=== PATIENT | male | born 1975 | race American Indian/Alaskan Native ===

== ENCOUNTER 2020-09-25 04:56 | Emergency (ER) | payer SELFPAY ==
[2020-09-25] MEDS ORDERED: ONDANSETRON 4 MG/2 ML INJ IV ONE (05:56)
[2020-09-25] MEDS ORDERED: SODIUM CHLORIDE 0.9% 1000 ML 1,000 ML IV ONE (05:56)
[2020-09-25] MEDS ORDERED: HYOSCYAMINE SUBL 0.125 MG TAB SL ONE (05:56)
[2020-09-25 06:09] LABS: Hematocrit 53.4 % (35.5-45.6); Hemoglobin 18.1 gm/dl (11.8-15.2); Mean Corpuscular HGB Conc 34 % (32-34); Mean Corpuscular Volume 94 fl (84-94); Red Blood Count 5.65 M/mm3 (3.65-5.03); Red Cell Distribution Width 14.6 % (13.2-15.2)
[2020-09-25 06:13] LABS: Platelet Count 184 K/mm3 (140-440)
--- NOTE | 2020-09-25 06:23 | Emergency Department Report ---
ED General Adult HPI - General Chief complaint: GI Bleed Stated complaint: N/V, Time Seen by Provider: 09/25/20 06:14 Source: patient Mode of arrival: Wheelchair Limitations: No Limitations - History of Present Illness Initial comments: Patient is a 44-year-old male presents emergency department for evaluation of intermittent burning epigastric pain associated with nausea and many episodes of vomiting beginning last night. Patient states after many episodes of nonbloody vomiting, a bystander noticed possible blood in his vomitus the last time. Ami ent denies diarrhea, denies fever, denies chest pain, no shortness of breath. - Related Data Previous Rx's Medication Instructions Recorded Last Taken Type Famotidine [Acid Controller] 20 mg PO BID #60 tablet 09/25/20 Unknown Rx Allergies Allergy/AdvReac Type Severity Reaction Status Date / Time No Known Allergies Allergy Unverified 09/25/20 05:31 ED Review of Systems ROS: Stated complaint: N/V, Other details as noted in HPI Comment: All other systems reviewed and negative ED Past Medical Hx - Past Medical History Previous Medical History?: No - Medications Home Medications: Home Medications Medication Instructions Recorded Confirmed Last Taken Type Famotidine [Acid Controller] 20 mg PO BID #60 tablet 09/25/20 Unknown Rx ED Physical Exam - General Limitations: No Limitations General appearance: alert, in no apparent distress - Head Head exam: Present: atraumatic, normocephalic - Eye Eye exam: Present: normal appearance - ENT ENT exam: Present: mucous membranes moist - Neck Neck exam: Present: normal inspection - Respiratory Respiratory exam: Present: normal lung sounds bilaterally. Absent: respiratory distress - Cardiovascular Cardiovascular Exam: Present: regular rate, normal rhythm - GI/Abdominal GI/Abdominal exam: Present: soft, tenderness (Mild epigastric), normal bowel sounds - Rectal Rectal exam: Present: deferred - Extremities Exam Extremities exam: Present: normal inspection - Back Exam Back exam: Present: normal inspection - Neurological Exam Neurological exam: Present: alert, oriented X3 - Psychiatric Psychiatric exam: Present: normal affect, normal mood - Skin Skin exam: Present: warm, dry, intact, normal color. Absent: rash ED Course Vital Signs 09/25/20 09/25/20 09/25/20 05:32 06:13 06:15 Temperature 97.7 F Pulse Rate 95 H 96 H 93 H Respiratory 18 18 11 L Rate Blood Pressure 135/105 O2 Sat by Pulse 98 94 95 Oximetry 09/25/20 09/25/20 09/25/20 06:31 06:57 07:00 Temperature Pulse Rate 91 H 93 H 92 H Respiratory 12 22 12 Rate Blood Pressure 157/83 156/99 156/99 O2 Sat by Pulse 97 99 98 Oximetry 09/25/20 09/25/20 09/25/20 07:15 07:31 07:45 Temperature Pulse Rate 93 H 88 97 H Respiratory 14 10 L 13 Rate Blood Pressure 163/96 155/83 155/83 O2 Sat by Pulse 95 96 97 Oximetry 09/25/20 09/25/20 09/25/20 08:01 08:14 08:15 Temperature Pulse Rate 99 H 93 H Respiratory 13 16 14 Rate Blood Pressure 155/83 155/83 O2 Sat by Pulse 98 98 Oximetry 09/25/20 09/25/20 09/25/20 08:31 08:45 09:01 Temperature Pulse Rate 92 H 94 H 92 H Respiratory 15 16 15 Rate Blood Pressure 155/83 155/83 155/83 O2 Sat by Pulse 94 94 94 Oximetry 09/25/20 09/25/20 09:19 09:31 Temperature Pulse Rate 94 H 89 Respiratory 12 12 Rate Blood Pressure 155/83 155/83 O2 Sat by Pulse 98 99 Oximetry - Reevaluation(s) Reevaluation #1: 09/25/20 07:28 Patient complaining of "stomach pain." Asked to localize pain, points to his epigastrium, states he has burning pain, specifies repeatedly the pain is in his stomach. Patient given Toradol IV, Maalox and Pepcid p.o. 09/25/20 10:41 Reevaluation #2: 09/25/20 10:42 On reevaluation, patient in no acute distress, abdomen is soft nontender. Patient states his discomfort is resolved. Patient is tolerating p.o. in the emergency department. Patient is advised to follow-up with primary care doctor in 1 to 2 days for reevaluation and referral to GI, explaining that endoscopy may be necessary. Web form for [facility] filled out on behalf of patient by EDMD to facilitate follow-up appointment. Patient advised to minimize and/or discontinue drinking alcohol. ED Medical Decision Making - Lab Data Result diagrams: 09/25/20 05:49 09/25/20 Unknown Labs 09/25/20 09/25/20 09/25/20 05:49 Unknown Unknown WBC 15.4 H RBC 5.65 H Hgb 18.1 H Hct 53.4 H MCV 94 MCH 32 MCHC 34 RDW 14.6 Plt Count 184 Add Manual Diff Complete Total Counted 100 Seg Neutrophils % Home Health Nurse Licensed Practical Seg Neuts % (Manual) 88.0 H Lymphocytes % (Manual) 9.0 L Monocytes % (Manual) 3.0 Nucleated RBC % Not Reportable Seg Neutrophils # Man 13.6 H Band Neutrophils # 0.0 Lymphocytes # (Manual) 1.4 Abs React Lymphs (Man) 0.0 Monocytes # (Manual) 0.5 Eosinophils # (Manual) 0.0 Basophils # (Manual) 0.0 Metamyelocytes # 0.0 Myelocytes # 0.0 Promyelocytes # 0.0 Blast Cells # 0.0 WBC Morphology Not Reportable Hypersegmented Neuts Not Reportable Hyposegmented Neuts Not Reportable Hypogranular Neuts Not Reportable Smudge Cells Not Reportable Toxic Granulation Not Reportable Toxic Vacuolation Not Reportable Dohle Bodies Not Reportable Pelger-Huet Anomaly Not Reportable Joby Rods Not Reportable Platelet Estimate Consistent w auto Clumped Platelets Rare Plt Clumps, EDTA Not Reportable Large Platelets Rare Giant Platelets Not Reportable Platelet Satelliting Not Reportable Plt Morphology Comment Not Reportable RBC Morphology Normal Dimorphic RBCs Not Reportable Polychromasia Not Reportable Hypochromasia Not Reportable Poikilocytosis Not Reportable Anisocytosis Not Reportable Microcytosis Not Reportable Macrocytosis Not Reportable Spherocytes Not Reportable Pappenheimer Bodies Not Reportable Sickle Cells Not Reportable Target Cells Not Reportable Tear Drop Cells Not Reportable Ovalocytes Not Reportable Helmet Cells Not Reportable [place] Bodies Not Reportable [place] Rings Not Reportable [place] Cells Not Reportable Bite Cells Not Reportable Crenated Cell Not Reportable Elliptocytes Not Reportable Acanthocytes (Spur) Not Reportable Rouleaux Not Reportable Hemoglobin C Crystals Not Reportable Schistocytes Not Reportable Malaria parasites Not Reportable Zeferino Bodies Not Reportable Hem Pathologist Commnt No Sodium 142 Potassium 3.5 L Chloride 107.2 H Carbon Dioxide 10 L Anion Gap 28 BUN 13 Creatinine 0.9 Estimated GFR > 60 BUN/Creatinine Ratio 14 Glucose 57 L Calcium 7.4 L Total Bilirubin 0.20 Direct Bilirubin < 0.2 Indirect Bilirubin 0.0 AST 29 ALT 23 Alkaline Phosphatase 70 Total Protein 6.8 Albumin 4.0 Albumin/Globulin Ratio 1.4 Lipase 18 Vital Signs 09/25/20 09/25/20 09/25/20 05:32 06:13 06:15 Temperature 97.7 F Pulse Rate 95 H 96 H 93 H Respiratory 18 18 11 L Rate Blood Pressure 135/105 O2 Sat by Pulse 98 94 95 Oximetry 09/25/20 09/25/20 09/25/20 06:31 06:57 07:00 Temperature Pulse Rate 91 H 93 H 92 H Respiratory 12 22 12 Rate Blood Pressure 157/83 156/99 156/99 O2 Sat by Pulse 97 99 98 Oximetry 09/25/20 09/25/20 09/25/20 07:15 07:31 07:45 Temperature Pulse Rate 93 H 88 97 H Respiratory 14 10 L 13 Rate Blood Pressure 163/96 155/83 155/83 O2 Sat by Pulse 95 96 97 Oximetry 09/25/20 09/25/20 09/25/20 08:01 08:14 08:15 Temperature Pulse Rate 99 H 93 H Respiratory 13 16 14 Rate Blood Pressure 155/83 155/83 O2 Sat by Pulse 98 98 Oximetry 09/25/20 09/25/20 09/25/20 08:31 08:45 09:01 Temperature Pulse Rate 92 H 94 H 92 H Respiratory 15 16 15 Rate Blood Pressure 155/83 155/83 155/83 O2 Sat by Pulse 94 94 94 Oximetry 09/25/20 09/25/20 09:19 09:31 Temperature Pulse Rate 94 H 89 Respiratory 12 12 Rate Blood Pressure 155/83 155/83 O2 Sat by Pulse 98 99 Oximetry - Radiology Data Radiology results: report reviewed CT abdomen pelvis negative per radiology Critical care attestation.: If time is entered above; I have spent that time in minutes in the direct care of this critically ill patient, excluding procedure time. ED Disposition Clinical Impression: Abdominal pain, Nausea & vomiting Disposition: DC-01 TO HOME OR SELFCARE Is pt being admited?: No Condition: Stable Instructions: Abdominal Pain, Adult, Nausea and Vomiting, Adult Additional Instructions: Follow-up with PMD in 1 to 2 days for reevaluation. Return to the emergency department for worsening symptoms. Prescriptions: Famotidine [Acid Controller] 20 mg PO BID #60 tablet Referrals: PRIMARY CARE,MD [Primary Care Provider] - 3-5 Days Forms: Accompanied Note
[2020-09-25 06:42] LABS: RBC Morphology Normal; Total Cells Counted 100
[2020-09-25 06:43] LABS: Large Platelets Rare; Platelet Clumps Rare; Platelet Estimate Consistent w Auto
[2020-09-25 07:11] LABS: Alanine Aminotransferase 23 units/L (7-56)
[2020-09-25] MEDS ORDERED: FAMOTIDINE 20 MG TAB PO ONE (07:27)
[2020-09-25] MEDS ORDERED: ALUM-MAG HYDROXIDE-SIMETHICONE 200-200-20MG/5ML ORAL LIQD 30 ML PO ONE (07:27)
[2020-09-25] MEDS ORDERED: KETOROLAC 30 MG/1 ML INJ IV ONE (07:27)
[2020-09-25 07:42] LABS: Bilirubin,Direct < 0.2 mg/dL (0-0.2)
[2020-09-25 08:45] VITALS: BP 155/83
[2020-09-25 08:51] LABS: BUN/Creatinine Ratio 14; Blood Urea Nitrogen 13 mg/dL (9-20); Calcium 7.4 mg/dL (8.4-10.2); Hemolysis Index 11
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
== END 2020-09-25 11:30 | disposition home or self-care (01) ==
LOC: ED 04:56
DX: R10.13 Epigastric pain (principal); R11.2 Nausea with vomiting, unspecified
CPT/HCPCS: 36415; 74177; 80048; 80076; 83690; 85007; 85025; 96361; 96374; 96375; 99284; J1885; J2405; J7030; Q9967

== ENCOUNTER 2021-06-06 15:42 | Emergency (ER) | payer SELFPAY ==
[2021-06-06] MEDS ORDERED: TETRACAINE 0.5% OPHTH SOLN 4ML OU ONE (18:48)
[2021-06-06] MEDS ORDERED: FLUORESCEIN 1 MG STRIP OP ONE (18:49)
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
[2021-06-06 22:14] VITALS: BP 126/82
== END 2021-06-06 22:12 | disposition home or self-care (01) ==
LOC: ED 15:42
DX: S05.12XA Contusion of eyeball and orbital tissues, left eye, initial encounter (principal); S05.02XA Injury of conjunctiva and corneal abrasion without foreign body, left eye, initial encounter; F17.200 Nicotine dependence, unspecified, uncomplicated; F12.90 Cannabis use, unspecified, uncomplicated; Z72.89 Other problems related to lifestyle; Z79.899 Other long term (current) drug therapy; Y04.8XXA Assault by other bodily force, initial encounter; Y93.89 Activity, other specified; Y92.89 Other specified places as the place of occurrence of the external cause; Y99.8 Other external cause status
CPT/HCPCS: 70480; 99284

== ENCOUNTER 2021-06-07 08:26 | Emergency (ER) | payer SELFPAY ==
[2021-06-07 08:49] VITALS: BP 126/73
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
== END 2021-06-07 11:15 | disposition home or self-care (01) ==
LOC: ED 08:26
DX: S05.02XA Injury of conjunctiva and corneal abrasion without foreign body, left eye, initial encounter (principal); H11.32 Conjunctival hemorrhage, left eye; F17.200 Nicotine dependence, unspecified, uncomplicated; F12.90 Cannabis use, unspecified, uncomplicated; Z72.89 Other problems related to lifestyle; Z79.899 Other long term (current) drug therapy; X58.XXXA Exposure to other specified factors, initial encounter; Y93.89 Activity, other specified; Y92.89 Other specified places as the place of occurrence of the external cause; Y99.8 Other external cause status
CPT/HCPCS: 99282